=== PATIENT | male | born 1990 | race Caucasian/White ===

== ENCOUNTER 2022-04-26 12:21 | Outpatient (REF) | payer OTHER, SELFPAY ==
[2022-04-26 13:52] LABS: Hemoglobin 15.5 g/dl (14.0-18.0); Mean Corpuscular HGB Conc 34.4 g/dl (31.0-36.0); Mean Corpuscular Hemoglobin 30.6 pg (27.0-33.0); Mean Corpuscular Volume 88.9 fL (80.0-98.0); Mean Platelet Volume 10.1 fL (9.4-12.4); Platelet Count 211 X10*3/uL (160-400); Red Blood Count 5.06 X10*6/uL (4.60-5.80); Red Cell Distribution Width 11.5 % (11.0-16.0); White Blood Count 5.1 X10*3/uL (4.8-10.8)
[2022-04-26 14:21] LABS: Alanine Aminotransferase 22 U/L (0-40); Albumin Level 4.9 g/dL (3.5-5.0); Alkaline Phosphatase 70 U/L (39-117); Anion Gap 14 (12-20); Aspartate Amino Transferase 21 U/L (5-37); Bilirubin Total 2.1 mg/dL (0.0-1.0); Blood Urea Nitrogen 11 mg/dL (9-16); Calcium 9.9 mg/dL (8.4-10.2); Carbon Dioxide 29 mmol/L (22-29); Chloride 104 mmol/L (96-108); Cholesterol 177 mg/dL; Estimated Glomerular Filt Rate > 60; Glucose Fasting 81 mg/dL (60-99); HDL Cholesterol 52 mg/dL; LDL Cholesterol Calculated 113 mg/dl; Potassium 4.3 mmol/L (3.3-5.1); Sodium 143 mmol/L (135-145); Total Protein 7.6 g/dL (6.5-8.0); Triglycerides 63 mg/dL
[2022-04-26 14:40] LABS: TSH reflex Free T4 3.04 uIU/mL (0.32-4.0)
== END 2022-04-26 12:22 | disposition home or self-care (01) ==
LOC: HO.WFDLDS 12:21
PROVIDERS: Visit Provider Hospitalist
DX: Z00.00 Encounter for general adult medical examination without abnormal findings (principal)
CPT/HCPCS: 36415; 80053; 80061; 84443; 85027

== ENCOUNTER 2023-05-12 09:38 | Outpatient (AMB) | payer OTHER, SELFPAY ==
--- NOTE | 2023-05-12 10:08 | MHC.PC.OV ---
Vital Signs 05/12/23 10:10 Height 6 ft 1 in Weight 158 lb 8 oz BMI 20.9 BP 118/64 Blood Pressure Location Lt brachial Position Sitting Respiration 12 Pulse 58 Pulse Source Pulse Oximeter Pulse Oximetry (%) 99 Oxygen Delivery Method Room Air Intake [facility] Intake Note: Patient reports he needs a referral for GI and a referral to neuro. Patient reports he needs a repeat lipid panel as well. 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 I do not have any records from this. He has not followed up with Neurology or Neurosurgery since moving back to [place] a few years ago. He would like to have a neurosurgery referral placed however wishes to hold off on doing that today as he wants to find the name of someone in the [place] area. He denies having any symptoms. In the past he had had headaches related to the shunt but has not suffered any headaches of late. Reports his vision is normal and does not go for routine eye exams. He is aware that he should be getting an MRI without contrast however due to finances and high deductibles on his health insurance he wishes to hold off on this at this time. 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 He was active with colorectal surgery in the past. Reports that his father is a automotive parts clerk recommends that he follow-up. He would like a referral today. Finally he has requesting a lipid screen. Reports his last lipid panel showed elevated triglycerides and he was just looking for a repeat. Reports eats a healthy diet exercises daily. He is fasting today. [facility] Medical History (Updated 05/12/23 @ 11:26 by Jennifer Perales, LAST PATTERN GRADER-) Fissure, anorectal Anxiety with depression History of glioma Chilblain Surgical History (Updated 05/12/23 @ 11:26 by Jennifer Perales [facility]) S/P CHILD DEVELOPMENT PROFESSOR shunt Family History Mother Hypertension PVC (premature ventricular contraction) Maternal Grandmother Hypertension Maternal Grandfather CAD (coronary artery disease) Other Mental health disorder Social History (Updated 05/12/23 @ 10:17 by Parris Dorman CMA) Household Members: Spouse Household Members Other:: 2 dogs Housing: Apartment Are you a primary healthcare network consultant to a significant other at home: No Do you presently have visiting nurse or other home services: No Alcohol intake: never Patient Tobacco Use Status: Former Tobacco user Tobacco use type: Cigarette Years Smoked: 3 years e-Cigarette/Vaping Use: Never Used Substance Use Type: Marijuana service: No Current occupational status: employed Current occupation: [employer] Current occupational exposures/hazards: No Cognitive needs: No Hearing needs: No Vision needs: No Questionnaire PHQ-9 Over the last 2 weeks, how often have you been bothered by any of the following problems? 1. Little interest or pleasure in doing things: not at all 2. Feeling down, depressed, or hopeless: not at all 3. Trouble falling or staying asleep, or sleeping too much: not at all 4. Feeling tired or having little energy: not at all 5. Poor appetite or overeating: not at all 6. Feeling bad about yourself - or that you are a failure or have let yourself or your family down: not at all 7. Trouble concentrating on things, such as reading the newspaper or watching television: not at all 8. Moving or speaking so slowly that other people could have noticed. Or the opposite - being so fidgety or restless that you have been moving around a lot more than usual: not at all 9. Thoughts that you would be better off or of hurting yourself in some way: not at all Total score: 0 Depression Screening Interpretation: Negative Depression Screening Done: Yes 96788 - PHQ-9 Billing: Yes Source: Developed by Drs. Feng Rosenberg, Tamela Jang, Zackary Musa and colleagues, with an educational rissa from [employer]. Thrive Questionnaire Date Thrive assessed: 05/12/23 I am a: Patient What is your living situation today?: I have a steady place to live Within the past 12 months, did the food you bought not last and you didn't have the money to get more?: Never true Within the past 12 months, did you worry whether your food would run out before you got money to buy more?: Never true Do you have trouble paying for medicines?: No Do you have trouble getting transportation to medical appointments?: No Do you have trouble paying your heating and electricity bill?: No Do you have trouble taking care of your child, family member or friend?: No Do you have trouble with day-to-day activities such as bathing, preparing meals, shopping, managing finances, etc.?: No Are you currently unemployed and looking for a job?: No Are you interested in more education?: No Please select the resources that you would like help with: None Currently or been in a relationship where the following occur: no concerns reported THRIVE Score: 0 AUDIT C Alcohol Use Questionnaire (AUDIT-C) 1. How often do you have a drink containing alcohol?: Never 3. How often do you have six or more drinks on one occasion?: Never Total Score: 0 STANLEY-7 AMB Questionnaire STANLEY-7 Date STANLEY - 7 assessed: 05/12/23 Feeling nervous, anxious, or on edge: 0 = Not at all Not being able to stop or control worryin = Not at all Worrying too much about different things: 0 = Not at all Trouble relaxin = Not at all Being so restless that it is hard to sit still: 0 = Not at all Becoming easily annoyed or irritable: 0 = Not at all Feeling afraid as if something awful might happen: 0 = Not at all Total STANLEY-7 score (0-4 normal; 5-9 mild; 10-14 moderate; 15-21 severe): 0 Source: Developed by Drs. Feng Rosenberg, Tamela Jang, Zackary Musa and colleagues, with an educational rissa from [employer]. STANLEY-7 Assessment Billing STANLEY-7 Assessment Tool: STANLEY-7 Assessment 78579 Review of Systems Const All systems reviewed & are unremarkable except as noted in HPI and below Physical exam (Primary Care) Vital Signs: Last Vital Signs Pulse 58 05/12/23 10:10 Resp 12 05/12/23 10:10 BP 118/64 05/12/23 10:10 Pulse Ox 99 05/12/23 10:10 Oxygen Delivery Method Room Air 05/12/23 10:10 BMI result Body Mass Index 20.9 Tobacco/Smoking Status: Tobacco use Status Tobacco use date assessed 05/12/23 05/12/23 10:19 Patient Tobacco Use Status Former Tobacco user 05/12/23 10:17 Tobacco use type Cigarette 05/12/23 10:17 e-Cigarette/Vaping Use Never Used 05/12/23 10:19 PHQ-9: PHQ-9 Score PHQ-9: Total score 0 05/12/23 10:37 Depression Screening Interpretation: Negative Thrive Assessment: Date of Thrive Assessment Date Thrive assessed 05/12/23 05/12/23 10:19 Currently or been in a relationship where the following occur: no concerns reported Const Other: Awake alert PERRLA, EOMI LS CTAB RRR Declined Gi/ exam Results Reviewed Results Reviewed: Test Result Flag Reference Triglyceride 41 <150 mg/dL Desirable Triglyceride: less than 150 mg/dL Borderline High Triglyceride 150-199 mg/dL High Triglyceride: 200-499 mg/dL Very High Triglyceride: greater than or equal to 5OO mg/dL Cholesterol 156 <200 mg/dL Desirable Cholesterol: less than 200 mg/dL Borderline High Cholesterol: 200-239 mg/dL High Cholesterol: greater than 239 mg/dL LDL Calculated 93 <100 mg/dL Desirable LDL: less than 100 mg/dL Near Optimal/Above Optimal LDL: 110-129 mg/dL Borderline High LDL: 130-159 mg/dL High LDL: 160-189 mg/dL Very High LDL: greater than or equal to 190 mg/dL HDL 55 >40 mg/dL Desirable HDL: greater than 40 mg/dL Note: This HDL assay may give artificially low results in patients with liver disease. Assessment and Plan Assessment & Plan (1) Fissure, anorectal: Code(s): K60.2 - Anal fissure, unspecified (2) Screening, lipid: Code(s): Z13.220 - Encounter for screening for lipoid disorders (3) S/P CHILD DEVELOPMENT PROFESSOR shunt: Code(s): Z98.2 - Presence of cerebrospinal fluid drainage device (4) History of glioma: Code(s): Z87.898 - Personal history of other specified conditions Plan Total time spent caring for the patient today was 60 minutes. This includes time spent before the visit reviewing the chart, time spent during the visit, and time spent after the visit on documentation Orders: Orders Lipid Panel Today Z13.220 - Encounter for screening for lipoid disorders Referrals Gastroenterology Referral K60.2 - Anal fissure, unspecified Patient Instructions: Lipids to be done today and results on the portal. When you find the name of the neurosurgeon he would like to follow-up with please send me a message on the portal and I can place this referral. I referred you to the GI department at [facility] and they will follow you for the care of your fissure. Coding Level of Care Code Est Pt Level 5 (64543) Diagnoses Fissure, anorectal K60.2 Screening, lipid Z13.220 S/P CHILD DEVELOPMENT PROFESSOR shunt Z98.2 History of glioma Z87.898 Additional Codes STANLEY-7 Assessment Billing - STANLEY-7 Assessment Tool: STANLEY-7 Assessment 17620 ([id number])
[2023-05-12 10:10] VITALS: BP 118/64; PULSE 58; RESP 12; O2SAT 99; BMI 20.9
== END 2023-05-12 10:55 | disposition home or self-care (01) ==
PROVIDERS: PCP Nurse Practitioner Family; Visit Provider Nurse Practitioner Family
DX: K60.2 Anal fissure, unspecified (principal); Z13.220 Encounter for screening for lipoid disorders; Z98.2 Presence of cerebrospinal fluid drainage device; Z87.898 Personal history of other specified conditions
CPT/HCPCS: 99215

== ENCOUNTER 2023-05-12 10:49 | Outpatient (REF) | payer OTHER, SELFPAY ==
[2023-05-12 15:28] LABS: Cholesterol 156 mg/dL (<200); HDL Cholesterol 55 mg/dL (>40); LDL Cholesterol Calculated 93 mg/dL (<100); Triglycerides 41 mg/dL (<150)
== END 2023-05-12 10:50 | disposition home or self-care (01) ==
LOC: HO.WFDLDS 10:49
PROVIDERS: Visit Provider Nurse Practitioner Family
DX: Z13.220 Encounter for screening for lipoid disorders (principal)
CPT/HCPCS: 36415; 80061

== ENCOUNTER 2023-06-27 09:15 | Outpatient (AMB) | payer OTHER, SELFPAY ==
--- NOTE | 2023-06-27 09:16 | MHC.OFFVIS ---
Intake Vital Signs 06/27/23 09:18 Height 6 ft 1 in Weight 162 lb 11.218 oz BMI 21.5 BP 129/65 Blood Pressure Location Lt brachial Position Sitting Pulse 65 Pulse Source Pulse Oximeter Intake Visit Reasons: Anal fissure Intake Note: Patient referred by PCP Jennifer Perales for anal fissure. Present for Anal fissure and acid reflux that has been going on for years. Patient c/o: GERD for years with no relief even after dietary changes. Pt denies any N/V/D. 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 Patient has been experiencing increased epigastric discomfort postprandially and occasional trouble swallowing. Patient reports that his epigastric discomfort is worse at night time. Patient reports that his last meal is to hour before going to bed. Patient states that sometimes when he eats spicy food he will experience dose symptoms. Patient also reports rectal pain occasionally and blood after having a bowel movement. Patient does have a history of fissures, however he tries to heal this himself by using [id number] medications. Patient is vegan and does high-fiber diet. Patient is drinking lots of fluids. Denies any issues with anesthesia in no history of sleep apnea. Not on any anticoagulation medication. Patient denies any cardiac or respiratory symptoms. [facility] Medical History Fissure, anorectal Anxiety with depression History of glioma Chilblain Surgical History S/P OPTICAL SALES ASSOCIATE shunt Family History Mother Hypertension PVC (premature ventricular contraction) Maternal Grandmother Hypertension Maternal Grandfather CAD (coronary artery disease) Other Mental health disorder Social History Household Members: Spouse Household Members Other:: 2 dogs Housing: Apartment Are you a primary residential care officer to a significant other at home: No Do you presently have visiting nurse or other home services: No 75 years or older and lives alone: No Alcohol intake: never Patient Tobacco Use Status: Former Tobacco user Tobacco use type: Cigarette Years Smoked: 3 years e-Cigarette/Vaping Use: Never Used Substance Use Type: Marijuana service: No Current occupational status: employed Current occupation: [employer] Current occupational exposures/hazards: No Cognitive needs: No Hearing needs: No Vision needs: No Review of Systems Const Denies weight gain and Denies weight loss ENT Reports no additional complaints, Reports dysphagia (Occasional) and Denies odynophagia Card Reports no additional complaints Resp Reports no additional complaints GI Denies abdominal pain, Denies belching, Denies melena, Denies bloating, Reports hematochezia, Denies change in bowel habits, Reports dysphagia (Occasional), Denies excessive flatus, Reports dyspepsia, Reports heartburn, Denies diarrhea, Denies loose stools, Denies nausea, Denies odynophagia, Denies vomiting and Reports other (Rectal pain) Reports no additional complaints Musc Reports no additional complaints Neuro Reports no additional complaints Psych Reports no additional complaints Endo Reports no additional complaints Physical Exam Vital Signs: Last Vital Signs Pulse 65 06/27/23 09:18 BP 129/65 06/27/23 09:18 BMI result Body Mass Index 21.5 Const General: healthy appearing, no acute distress and well developed Nutritional Appearance: well nourished Orientation/consciousness: patient oriented x3 Resp Effort & Inspection: normal respiratory effort, able to speak in complete sentences, no tracheal deviation and symmetric chest movement Auscultation: clear to auscultation bilaterally Cardio Rate: regular rate GI Inspection: Yes normal to inspection and No distended Palpation (GI): Soft to palpation, not firm, nontender and No hepatosplenomegaly present Auscultation: normal bowel sounds General: Yes no CVA tenderness Back/Spine/Pelvis Back: no CVA tenderness Skin General skin exam: elasticity normal, turgor normal and dry skin Neuro General: patient oriented x3 Psych Appearance: grossly normal Mental Status: mental status grossly normal Assessment & Plan Assessment & Plan (1) Fissure, anorectal: Code(s): K60.2 - Anal fissure, unspecified (2) Rectal bleed: Code(s): K62.5 - Hemorrhage of anus and rectum (3) GERD (gastroesophageal reflux disease): Code(s): K21.9 - Gastro-esophageal reflux disease without esophagitis Qualifiers: Esophagitis presence: esophagitis presence not specified Qualified Code(s): K21.9 - Gastro-esophageal reflux disease without esophagitis (4) Postprandial epigastric pain: Code(s): R10.13 - Epigastric pain Plan Postprandial epigastric discomfort. Patient will try avoiding dietary triggers and late night snacking. Staying upright for minimum 3 hours after meals discussed with patient. Patient will be sent for upper endoscopy to rule out gastritis, duodenitis, gastric or peptic ulcers, Rosas's. Patient reports rectal bleed and rectal pain occasionally. Will send for colonoscopy. What to expect before during and after procedure discussed with patient. Discussed with patient the importance of good bowel prep and clear liquid diet day before procedure. I will see him after the procedure, sooner on as needed basis. Patient is agreeable to this plan and verbalizes understanding of instructions. He was given the opportunity to ask questions and all questions answered. Thank you for allowing me to participate in his care. Coding Level of Care Code New Pt Level 3 (60678) Diagnoses Fissure, anorectal K60.2 Rectal bleed K62.5 Gastroesophageal reflux disease, unspecified whether esophagitis present K21.9 Esophagitis presence: esophagitis presence not specified Postprandial epigastric pain R10.13 Time Spent (min) 40 Comment 30 minutes spent with patient and additional 10 minutes spent reviewing his records
[2023-06-27 09:18] VITALS: BP 129/65; PULSE 65; BMI 21.5
== END 2023-06-27 10:04 | disposition home or self-care (01) ==
PROVIDERS: PCP Nurse Practitioner Family; Visit Provider Nurse Practitioner Family
DX: K60.2 Anal fissure, unspecified (principal); K62.5 Hemorrhage of anus and rectum; K21.9 Gastro-esophageal reflux disease without esophagitis; R10.13 Epigastric pain
CPT/HCPCS: 99203

== ENCOUNTER → 2023-06-27 09:15 | Outpatient (BNVA) | payer OTHER, SELFPAY | PROVIDERS: PCP Nurse Practitioner Family; Visit Provider Nurse Practitioner Family ==

== ENCOUNTER 2023-07-04 07:56 | Outpatient (REF) | payer OTHER, SELFPAY ==
--- NOTE | ~2023-07-04 | MR_ITS ---
EXAMINATION: MR BRAIN WITH AND WITHOUT CONTRAST CLINICAL INFORMATION: tectal glioma, ventriculoperitoneal shunt COMPARISON: MRI brain 04/08/2011 TECHNIQUE: MRI of the brain was obtained using routine sequences before and following administration of intravenous contrast. A total of 7 mL of Gadavist was administered intravenously. FINDINGS: Stable appearance of a expansile nonenhancing T2 FLAIR hyperintensity within the midbrain tectum/periaqueductal mon matter with associated occlusion versus stenosis of the cerebral aqueduct compatible with known tectal glioma. A right frontal approach ventriculoperitoneal shunt catheter is in stable position traversing the right frontal horn and terminating within the midline interhemispheric region. Stable ventricular caliber with slitlike appearance of the right lateral ventricle and slight prominence of the left lateral ventricle. No transependymal CSF effusion. No extra-axial fluid collections. There is slight gliosis along the course of the catheter tract within the right frontal lobe/centrum semiovale. No pathologic intracranial enhancement. No acute infarct. The GRE sequence is without susceptibility artifact to suggest acute or chronic blood products. The intracranial dural venous sinus and arterial flow voids are preserved. The orbits are grossly unremarkable. Leftward nasal septal deviation with bony spur impinging on the left inferior nasal turbinate. Trace ethmoid air cell mucosal thickening. No mastoid effusion. Normal marrow signal. MR/MR head/brain wo/w con IMPRESSION: 1. Stable appearance of a expansile nonenhancing T2 FLAIR hyperintensity within the midbrain tectum/periaqueductal mon matter with associated occlusion versus stenosis of the cerebral aqueduct compatible with known tectal glioma. 2. 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
[2023-07-04] MEDS: gadobutroL 7.5 ML VIAL IVPUSH (09:16)
== END 2023-07-04 07:57 | disposition home or self-care (01) ==
LOC: HO.MRI 07:56
PROVIDERS: Visit Provider Nurse Practitioner Family
DX: Z98.2 Presence of cerebrospinal fluid drainage device (principal); Z87.898 Personal history of other specified conditions
CPT/HCPCS: 70553; A9585

== ENCOUNTER 2023-10-24 07:15 | Day surgery (SDC) | payer OTHER, SELFPAY ==
[2023-10-24 07:32] VITALS: BP 107/73; PULSE 80; RESP 18; TEMP 36.4; O2SAT 98; BMI 19.1
[2023-10-24 07:39] VITALS: BMI 19.1
--- NOTE | 2023-10-24 07:48 | HO.ANESPROP2 ---
HPI - Anesthesia Eval Consult details Narrative: for EGD and colonoscopy PMF Active Problems Active Problems: All Active Problems Stenosing tenosynovitis of finger of right hand (Acute) Injury while rock climbing (Acute) Fissure, anorectal (Acute) GERARDO positive (Acute) History of glioma (Acute) S/P CREW CLERK shunt (Acute) Anxiety with depression (Acute) Screening, lipid (Acute) Normal physical exam (Acute) Encounter for screening and preventative care (Acute) Headache (Acute) Past Medical History Medical History (Updated 09/08/23 @ 06:27 by Jennifer Perales [facility]) Fissure, anorectal Anxiety with depression History of glioma Chilblain Cognitive capacity: normal Family History Family History Mother Hypertension PVC (premature ventricular contraction) Maternal Grandmother Hypertension Maternal Grandfather CAD (coronary artery disease) Other Mental health disorder Family history of problems with anesthesia: No Surgical History Surgical History (Updated 07/10/23 @ 15:16 by EVETTE Galeano) S/P CREW CLERK shunt History of Problems with Anesthesia: Yes (N/V after opioids) Social History Social History Household Members: Spouse Household Members Other:: 2 dogs Housing: Apartment Are you a primary ocular care technician to a significant other at home: No Do you presently have visiting nurse or other home services: No Alcohol intake: never Patient Tobacco Use Status: Former Tobacco user Tobacco use type: Cigarette Years Smoked: 3 years e-Cigarette/Vaping Use: Never Used Use of substances other than those prescribed or required for medical reasons: Yes Substance Use Type: Marijuana Substance Use Type Other:: edibles Are you DNR?: No Advance Directives: No Advance Directives Information Provided: Yes service: No Current occupational status: employed Current occupation: [employer] Current occupational exposures/hazards: No Cognitive needs: No Hearing needs: No Vision needs: No Meds Allergies Allergy/AdvReac Type Severity Reaction Status Date / Time No Known Allergies Allergy Verified 10/24/23 07:26 Home Medications ?Medication ?Instructions ?Recorded ?Confirmed ?Last Taken ?Type No Known Home Meds 10/24/23 10/24/23 Unknown History Exam Height,Weight and Vital Signs: Height 6 ft 3.5 in Weight 70.307 kg Last Vital Signs Temp 97.6 F 10/24/23 07:32 Pulse 80 10/24/23 07:32 Resp 18 10/24/23 07:32 BP 107/73 10/24/23 07:32 Pulse Ox 98 10/24/23 07:32 O2 Del Method Room Air 10/24/23 07:32 Airway Mallampati Class: I TM Dist: >3cm Neck ROM: Full Loose/Missing/Broken Teeth: No Heart: ok Lungs: ok Assessment and Plan Assessment Anesthesia Assessment: Anesthesia Plan Discussed and Chart Reviewed Final Anesthetic Review Family History of Problems with Anesthesia: No History of Problems with Anesthesia: Yes (N/V after opioids) NPO: Yes ASA Class: III Final Preanesthetic Review: No Changes in Pt Med Stat, Meds/Allgs Chart Reviewed, Consent Obtained/Reviewed and Anes Risks/Benef Reviewed Patient Risk: Low Procedure Risk: Intermediate Anesthetic Plan Anesthetic Plan: Agree w/ Assess. and Plan and TIVA Disposition: Standard PACU
[2023-10-24] MEDS: Lactated Ringers 1,000 ML 50 ML IVCONT (07:52)
--- NOTE | 2023-10-24 08:26 | P.HPSUR_ITS ---
Pre-Procedural Eval Section A - 24 Hr Update-Section A only Date of Service: 10/24/23 The patient is an INPATIENT: No The patient has been examined within 24 hours of the surgical procedure. 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 No changes have occurred unless specified. Time Spent With Patient Time: Total time managing care of this patient today ____ minutes.
--- NOTE | 2023-10-24 09:09 | P.OPN-COLO_ITS ---
Colonoscopy Operative Note Operative Note Date of Service: 10/24/23 Narrative: FLEXIBLE TRANSORAL UPPER GASTROINTESTINAL ENDOSCOPY WITH BIOPSIES AND COLONOSCOPY TILL CECUM WITH BIOPSIES Pre-op diagnosis: Abdominal pain, GERD, rectal pain and bleeding Post-op diagnosis: Gastritis, Gastric ulcer, Hemorrhoids, anal fissure Endoscopist:Alejandra Wall MD Anesthesia:?MAC UPPER ENDOSCOPY Consent: Indications for the procedure and potential complications of bleeding, perforation, reaction to medications and missed diagnosis were discussed with the patient and informed consent was obtained. Instrument: Olympus GIF H 190 mid size upper endoscope Monitoring: Vital signs and clinical assessment, continuous EKG monitoring, Pulse oximetry, Carbon Dioxide monitoring and blood pressure monitoring were done throughout the procedure. Procedure: The patient was placed in the left lateral decubitis position and pre-procedure medications were administered and a bite block was placed. The endoscope was inserted into the mouth and advanced under direct vision to the third part of duodenum. A careful inspection was made as the upper endoscope was withdrawn including a retroflexed examination of the proximal stomach; Findings and interventions are described below. Findings: Larynx: Normal Esophagus: GE junction at 40 cms. No esophagitis or Rosas's Biopsies were obtained from proximal esophagus to check for EOE. Stomach: A 5-6 mm ulcer in the gastric body along the greater curvature - biopsied. Moderate diffuse gastric erythema - biopsies were obtained from the gastric body and antrum. Grade 2 flap valve on retroflexed examination of the cardia. Duodenum: Normal bulb and descending duodenum Biopsies were obtained from descending duodenum to check for celiac sprue Intervention: Biopsies as noted above COLONOSCOPY PROCEDURE NOTE Instrument: Olympus CF H 190 L variable stiffness adult colonoscope Monitoring: Vital signs and clinical assessment, intermittent blood pressure monitoring, continuous EKG monitoring, Pulse oximetry and Carbon Dioxide monitoring were done throughout the procedure. Please see anesthesia flowsheet. Colon withdrawl time was 17 minutes. Procedure: The patient was placed in the left lateral decubitis position and pre-procedure medications were administered. After a digital rectal examination of the ano-rectum, the video colonoscope was inserted into the rectum and advanced through the colon to the cecum. The colonoscope was slowly withdrawn in a retrograde panoramic fashion and the colon mucosa was carefully examined including a retroflexed view of the rectum. Findings and interventions are described below. Procedure Difficulty: Colon was long, redundant and tortuous and there was some loop formation Findings: Terminal Ileum: Not evaluated Cecum: Normal Ascending Colon: Normal Transverse Colon: Normal Descending Colon: Normal Sigmoid Colon: Normal Rectum: Normal Ano-rectum: Moderate internal hemorrhoids, hypertrophied anal papilla and a healing anal fissure Colon preparation: Excellent, after some irrigation. [place] Bowel Preparation Scale Right colon; 3 Transverse colon: 3 Left colon; 3 (0 = Unprepared colon segment with mucosa not seen due to solid stool that cannot be cleared. 1 = Portion of mucosa of the colon segment seen, but other areas of the colon segment not well seen due to staining, residual stool and/or opaque liquid. 2 = Minor amount of residual staining, small fragments of stool and/or opaque liquid, but mucosa of colon segment seen well. 3 = Entire mucosa of colon segment seen well with no residual staining, small fragments of stool or opaque liquid) Impression and Post Procedure Diagnosis: Endoscopy Findings: STOMACH: A 5-6 mm ulcer in the gastric body along the greater curvature - Pt denied use to NSAIDS or aspirin. Moderate diffuse gastric erythema - biopsies were obtained from the gastric body and antrum. DUODENUM: Normal - biopsied to check for celiac sprue Colonoscopy Findings: No polyps were detected Random biopsies were obtained from the TI, right and left colon Moderate hemorrhoids on retroflexed exam. Plan: Pt requesting a Tele-visit with Starla Mayo NP (since he lives in [place]) for follow up - scheduled on 11/21/23. Repeat Colonoscopy in 10 year if biopsies are normal. Above findings were reviewed with the patient and relevant handouts were given and the discharge area. Pt was advised to start Omeprazole 20 mg daily for gastric ulcer - prescription was sent to patient's preferred pharmacy. He was offered a prescription for hydrocortisone rectal cream for hemorrhoids. Pt stated his symptoms have improved since he started doing sitz baths and using a bidet and he wanted to avoid medications BIOPSIES SHOWED: A. Small bowel, biopsy: Small bowel mucosa with preserved villi and no specific change; no evidence of celiac disease. B. Gastric antrum, biopsy: Gastric antral mucosa with minimal chronic inactive gastritis; negative for intestinal metaplasia and dysplasia (see comment). C. Gastric body, biopsy: Gastric body mucosa with minimal chronic inactive gastritis, and fragments of mild chronic active gastritis and increased intraepithelial lymphocytes; negat clotilde for intestinal metaplasia and dysplasia (see comment). D. Gastric body ulcer, biopsy: Mild chronic active gastritis; negative for intestinal metaplasia and dysplasia. E. Esophagus, proximal, biopsy: Squamous mucosa with no specific change; no columnar mucosa present; no evidence of eosinophilic esophagitis. F. Terminal ileum, biopsy: Ileal mucosa with no specific change; no ileitis, granulomas or dysplasia. G. Colon, right, biopsy: Colonic mucosa with no specific change; no colitis, granulomas or dysplasia. H. Colon, left, biopsy: Colonic mucosa with lymphoid aggregates and no specific change; no colitis, granulomas or dysplasia.
[2023-10-24 09:38] VITALS: BP 91/51; PULSE 50; RESP 18; TEMP 36.4; O2SAT 100
[2023-10-24 09:53] VITALS: BP 101/61; PULSE 51; RESP 16; TEMP 36.1; O2SAT 98
== END 2023-10-24 10:20 | disposition home or self-care (01) ==
PROVIDERS: PCP Nurse Practitioner Family; Visit Provider Internal Medicine Gastroenterology
PROC: (CPT 45380; principal; 2023-10-24 08:30)
DX: K62.5 Hemorrhage of anus and rectum (principal); K64.8 Other hemorrhoids; K60.2 Anal fissure, unspecified; K62.89 Other specified diseases of anus and rectum; R10.13 Epigastric pain; K29.50 Unspecified chronic gastritis without bleeding; K25.9 Gastric ulcer, unspecified as acute or chronic, without hemorrhage or perforation; K21.9 Gastro-esophageal reflux disease without esophagitis; R76.0 Raised antibody titer; F41.8 Other specified anxiety disorders; Z85.841 Personal history of malignant neoplasm of brain; Z98.2 Presence of cerebrospinal fluid drainage device; Z79.899 Other long term (current) drug therapy; Z87.891 Personal history of nicotine dependence
CPT/HCPCS: 45380; 43239; 88305; 88313; 88342; J2704

== ENCOUNTER → 2023-10-24 07:15 | Outpatient (BNV) | payer OTHER, SELFPAY | PROVIDERS: PCP Nurse Practitioner Family; Visit Provider Internal Medicine Gastroenterology | DX: K21.9 Gastro-esophageal reflux disease without esophagitis (principal); K29.70 Gastritis, unspecified, without bleeding; K25.9 Gastric ulcer, unspecified as acute or chronic, without hemorrhage or perforation; K62.5 Hemorrhage of anus and rectum; K64.8 Other hemorrhoids; K62.89 Other specified diseases of anus and rectum | CPT/HCPCS: 43239; 45380 ==

== ENCOUNTER 2024-04-29 15:13 | Outpatient (AMB) | payer OTHER, SELFPAY ==
--- NOTE | 2024-04-29 15:14 | A.OFFPC_ITS ---
Vital Signs 04/29/24 15:19 Height 6 ft 3.5 in Weight 166 lb BMI 20.5 BP 117/66 Blood Pressure Location Lt brachial Position Sitting Respiration 12 Pulse 63 Pulse Source Pulse Oximeter Pulse Oximetry (%) 99 Oxygen Delivery Method Room Air Intake Visit Reasons: Annual pe Intake Note: annual physical Clock And Watch Hands Mounter Required: No Allergies No Known Allergies Allergy (Verified 04/29/24 15:36) Medication List - Last Reconciled 04/29/24 by DAVE Galeano Tobacco use date assessed: 05/12/23 Dental Screening Dental Screen Date: 04/29/24 Did you have a dental visit in the last 12 months?: Yes Did you have a dental problem in the last 6 months where you did not have access to dental care?: No Was dental information given to patient?: Patient has dentist HPI HPI Comments History of Present Illness Details A 33-year-old male with hx of anal rectal fissure, 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 In June, the patient experienced an issue related to neurosurgery referrals and is seeking to establish care with [facility]. In addition, the patient was diagnosed with Peptic Ulcer Disease and was treated with Omeprazole for four months, leading to resolution. The patient also reports a history of anal fissure, managed successfully with nitroglycerin ointment. He expressed long-standing issues with anxiety, exacerbated by work- related stress, and shows a history of depression as indicated by a positive PHQ-9 screen. The patient also has elevated bilirubin levels, possibly indicative of Gilbert's Syndrome, which has been chronically stable over the years, without a formal diagnosis. No significant changes in family history were reported. Utilizes physical exercise as a stress-relieving measure. Vegan diet with B12, Vitamin D, and iron supplementation. Exam: General: Well developed, well nourished, in no acute distress. Appears stated age. Head: Normocephalic, atraumatic. Eyes: Pupils are equal, round and reactive to light and accommodation. Conjunctivae are clear. Vision grossly normal. Ears: TMs clear AU, EACS WNL Nose: Patent, without discharge. Mouth: There are no ulcers or lesions noted. No inflammation, no post nasal drip, no plaques nor exudates. Neck: Supple, no adenopathy or thyromegaly. Lungs: Clear to auscultation bilaterally. No rales, rhonchi or wheeze noted. Good air flow in all gilman. Heart: Regular rate and rhythm. No murmurs, click, rubs or gallops are noted. Abdomen: Bowel sounds present in all quadrants. The abdomen is soft, nontender, with no masses or organomegaly noted. No hernias are noted. Musculoskeletal: Joints are nontender, without swelling, redness, or effusions. Range of motion is observed to be normal. Pulses: Peripheral pulses are equal and palpable bilaterally. Extremities: No clubbing, cyanosis nor edema is noted. Neurologic: Gait and station normal. Cranial Nerves 2-12 intact. Motor strength grossly symmetrical and intact. No sensory loss. Balance normal. Skin: No rashes, ulcers, or lesions noted. Turgor is good. Skin color is good. Hair and nails are without abnormalities. Psych: Normal eye contact, affect and mood appropriate, and normal interactions. Patient is alert and appropriate to context. I discussed with the patient the management of their anxiety and depressive symptoms, emphasizing the importance of cognitive-behavioral therapy and the potential use of SSRIs if needed in the future. The patient expressed a preference for natural remedies, and we reviewed the pros and cons of alternative treatments. I addressed the referral issues with [facility] for neurosurgery and guided the patient to ensure the referral is in hand for any discrepancies. We reviewed routine health maintenance, emphasizing the patient's exercise regimen benefits for mental health. The patient is aware of the occurrence and management of his health concerns, including the significance of addressing elevated bilirubin levels and follow-up with a specialist if necessary. I encouraged him to communicate with me if his mood or work stress worsens. Plan: - Referral to [facility] neurosurgery for fur ther evaluation and management. - Follow-up with Gastroenterology as nee ded for history of gastric ulcer, also Gilbert's Syndrome consideration. - Monitoring of anxiety and depression; patient plans to arrange for CBT sessions shortly. Offered and declined medication. Was on SSRI in the past. - Encouraged continuation of physical ex ercise for anxiety relief. - No further pharmacological interventio n for Peptic Ulcer Disease; monitor recurrences. Patient was informed and verbally consented to the use of an ambient scribe for clinic note documentation during this visit. [facility] Medical History (Updated 04/29/24 @ 15:54 by Jennifer Perales [facility]) Gastric ulcer Stenosing tenosynovitis of finger of right hand Perianal abscess Fissure, anorectal Anxiety with depression History of glioma Chilblain Surgical History (Updated 07/10/23 @ 15:16 by [facility] S/P ANTIQUE CLOCKS REPAIRER shunt Family History Mother Hypertension PVC (premature ventricular contraction) Maternal Grandmother Hypertension Maternal Grandfather CAD (coronary artery disease) Other Mental health disorder Social History Household Members: Spouse Household Members Other:: 2 dogs Housing: Apartment Are you a primary nursing care partner to a significant other at home: No Do you presently have visiting nurse or other home services: No 75 years or older and lives alone: No Alcohol intake: never Patient Tobacco Use Status: Former Tobacco user Tobacco use type: Cigarette Years Smoked: 3 years e-Cigarette/Vaping Use: Never Used Substance Use Type: Marijuana service: No Current occupational status: employed Current occupation: [employer] Current occupational exposures/hazards: No Cognitive needs: No Hearing needs: No Vision needs: No Questionnaire PHQ-9 Over the last 2 weeks, how often have you been bothered by any of the following problems? 1. Little interest or pleasure in doing things: several days 2. Feeling down, depressed, or hopeless: more than half the days 3. Trouble falling or staying asleep, or sleeping too much: nearly every day 4. Feeling tired or having little energy: several days 5. Poor appetite or overeating: not at all 6. Feeling bad about yourself - or that you are a failure or have let yourself or your family down: nearly every day 7. Trouble concentrating on things, such as reading the newspaper or watching television: several days 8. Moving or speaking so slowly that other people could have noticed. Or the opposite - being so fidgety or restless that you have been moving around a lot more than usual: several days 9. Thoughts that you would be better off or of hurting yourself in some way: not at all Total score: 12 Depression Screening Interpretation: Positive Depression Screening Follow-up: Existing condition Depression Screening Done: Yes 58175 - PHQ-9 Billing: Yes Source: Developed by Drs. Feng Rosenberg, Tamela Jang, Zackary Musa and colleagues, with an educational rissa from [employer]. Thrive Questionnaire Date Thrive assessed: 04/29/24 I am a: Patient What is your living situation today?: I have a steady place to live Within the past 12 months, did the food you bought not last and you didn't have the money to get more?: Never true Within the past 12 months, did you worry whether your food would run out before you got money to buy more?: Never true Do you have trouble paying for medicines?: No Do you have trouble getting transportation to medical appointments?: No Do you have trouble paying your heating and electricity bill?: No Do you have trouble taking care of your child, family member or friend?: No Do you have trouble with day-to-day activities such as bathing, preparing meals, shopping, managing finances, etc.?: No Are you currently unemployed and looking for a job?: No Are you interested in more education?: No Please select the resources that you would like help with: None Currently or been in a relationship where the following occur: No concerns reported THRIVE Score: 0 AUDIT C Alcohol Use Questionnaire (AUDIT-C) 1. How often do you have a drink containing alcohol?: Never 3. How often do you have six or more drinks on one occasion?: Never Total Score: 0 Score Reviewed/Action Taken: Yes STANLEY-7 AMB Questionnaire STANLEY-7 Date STANLEY - 7 assessed: 04/29/24 Feeling nervous, anxious, or on edge: 3 = Nearly every day Not being able to stop or control worryin = More than half the days Worrying too much about different things: 3 = Nearly every day Trouble relaxin = Several days Being so restless that it is hard to sit still: 3 = Nearly every day Becoming easily annoyed or irritable: 2 = More than half the days Feeling afraid as if something awful might happen: 2 = More than half the days Total STANLEY-7 score (0-4 normal; 5-9 mild; 10-14 moderate; 15-21 severe): 16 Source: Developed by Drs. Feng Rosenberg, Tamela Jang, Zackary Musa and colleagues, with an educational rissa from [employer]. STANLEY-7 Assessment Billing STANLEY-7 Assessment Tool: STANLEY-7 Assessment 65213 Physical exam (Primary Care) Tobacco/Smoking Status: Tobacco use Status Tobacco use date assessed 05/12/23 05/12/23 10:19 Patient Tobacco Use Status Former Tobacco user 10/24/23 09:49 Tobacco use type Cigarette 05/12/23 10:17 e-Cigarette/Vaping Use Never Used 05/12/23 10:19 Depression Screening Interpretation: Positive Depression Screening Follow-up: Existing condition Thrive Assessment: Date of Thrive Assessment Date Thrive assessed 04/26/24 04/26/24 14:47 Currently or been in a relationship where the following occur: No concerns reported Coding Level of Care Code Est Pt Prev Care 18-39y(61700) Diagnoses Encounter for general adult medical examination without abnormal findings Z00.00 History of glioma Z87.898 S/P ANTIQUE CLOCKS REPAIRER shunt Z98.2 Anxiety with depression F41.8 Additional Codes STANLEY-7 Assessment Billing - STANLEY-7 Assessment Tool: STANLEY-7 Assessment 95926 ([id number]) PHQ-9 - 59860 - PHQ-9 Billing: Yes ([id number]) Assessment & Plan Assessment & Plan (1) Encounter for general adult medical examination without abnormal findings: Code(s): Z00.00 - Encounter for general adult medical examination without abnormal findings Category: Medical (2) History of glioma: Comment: MRI 06/2023 1. Stable appearance of a expansile nonenhancing T2 FLAIR hyperintensity within the midbrain tectum/periaqueductal mon matter with associated occlusion versus stenosis of the cerebral aqueduct compatible with known tectal glioma. 2. 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 Referred to [facility] Code(s): Z87.898 - Personal history of other specified conditions Category: Medical (3) S/P ANTIQUE CLOCKS REPAIRER shunt: Comment: MRI 06/2023 1. Stable appearance of a expansile nonenhancing T2 FLAIR hyperintensity within the midbrain tectum/periaqueductal mon matter with associated occlusion versus stenosis of the cerebral aqueduct compatible with known tectal glioma. 2. 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 Referred to [facility] Dr Waylon Maguire Neurosurg for survellience Code(s): Z98.2 - Presence of cerebrospinal fluid drainage device Category: Surgical (4) Anxiety with depression: Code(s): F41.8 - Other specified anxiety disorders Category: Medical Plan . Orders: Referrals Neurosurgery Referral Z87.898 - Personal history of other specified conditions, Z98.2 - Presence of cerebrospinal fluid drainage device Patient Instructions: - Follow up with neurosurgery referral at [facility]. - Continue with regular exercise and vegan diet with outlined supplements. - Contact me if anxiety or depression symptoms worsen. - Keep upcoming health check-ups and consider contacting a therapist for CBT sessions. - Monitor and report any recurrence of gastrointestinal symptoms. - Reach out for any acute changes in health status or if any concerning symptoms arise. Health screenings for men You should visit your health care provider regularly, even if you feel healthy. The purpose of these visits is to: Screen for medical issues Assess your risk for future medical problems Encourage a healthy lifestyle Update vaccinations and other preventive care services Help you get to know your provider in case of an illness Information Even if you feel fine, you should still see your provider for regular checkups. These visits can help you avoid problems in the future. For example, the only way to find out if you have high blood pressure is to have it checked regularly. High blood sugar and high cholesterol level also may not have any symptoms in t he early stages. Simple blood tests can check for these conditions. There are specific times when you should see your provider or receive specific health screenings. The [place] Preventive Services Task Force publishes a list of recommended screenings. Below are screening guidelines for men ages 40 to 64. BLOOD PRESSURE SCREENING Have your blood pressure checked at least once every year. Watch for blood pressure screenings in your area. Ask your provider if you can stop in to have your blood pressure checked. Ask your provider if you need your blood pressure checked more often if: You have diabetes, heart disease, kidney problems, or are overweight or have certain other health conditions You have a first-degree relative with high blood pressure You are Black Your blood pressure top number is from 120 to 129 mm Hg, or the bottom number is from 70 to 79 mm Hg If the top number is 130 mm Hg or greater or the bottom number is 80 mm Hg or greater, this is considered stage 1 hypertension. Schedule an appointment with your provider to learn how you can lower your blood pressure. Effects of age on blood pressure CHOLESTEROL SCREENING Cholesterol screening should begin at age 35 for men with no known risk factors for coronary heart disease. Repeat cholesterol screening should take place: Every 5 years for men with normal cholesterol levels More often if changes occur in lifestyle (including weight gain and diet) More often if you have diabetes, heart disease, kidney problems, or certain other conditions COLORECTAL CANCER SCREENING If you are under age 45, talk to your provider about getting screened. You may need to be screened if you have a strong family history of colon cancer or polyps. Screening may also be considered if you have risk factors such as a history of inflammatory bowel disease or polyps. If you are age 45 to 75, you should be screened for colorectal cancer. There are several screening tests available: A stool-based fecal occult blood (gFOBT) or fecal immunochemical test (FIT) every year A stool sDNA test every 1 to 3 years Flexible sigmoidoscopy every 5 years or every 10 years with stool testing FIT done every year CT colonography (virtual colonoscopy) every 5 years Colonoscopy every 10 years You may need a colonoscopy more often if you have risk factors for colorectal cancer, such as: Ulcerative colitis A personal or family history of colorectal cancer A history of growths in your colon called adenomatous polyps DENTAL EXAM Go to the dentist once or twice every year for an exam and cleaning. Your dentist will evaluate if you have a need for more frequent visits. DIABETES SCREENING All adults who do not have risk factors for diabetes should be screened starting at age 35 and repeated every 3 years. If you have other risk factors for diabetes, such as a first degree relative with diabetes, overweight or obesity, high blood pressure, prediabetes, or a history of heart disease, you may be tested more often. If you are overweight and have other risk factors, such as high blood pressure and are planning to become , screening is recommended. EYE EXAM Have an eye exam every 2 to 4 years ages 40 to 54 and every 1 to 3 years ages 55 to 64. Your provider may recommend more frequent eye exams if you have vision problems or glaucoma risk. Have an eye exam that includes an examination of your retina (back of your eye) at least every year if you have diabetes. IMMUNIZATIONS Commonly needed vaccines include: Flu shot: get one every year COVID-19 vaccine: ask your provider what is best for you Tetanus-diphtheria and acellular pertussis (Tdap) vaccine: have as one of your tetanus-diphtheria vaccines if you did not receive it as an adolescent Tetanus-diphtheria: have a booster (or Tdap) every 10 years Varicella vaccine: receive 2 doses if you never had chickenpox or the varicella vaccine and were born in 1980 or after Hepatitis B vaccine: receive 2, 3, or 4 doses, depending on your exact circumstances, if you did not receive these as a child or adolescent, until age 59 Shingles (herpes zoster) vaccine: at or after age 50 Ask your provider if you should receive other immunizations, especially if you have certain medical conditions, such as diabetes or are at increased risk for some diseases such as pneumonia. INFECTIOUS DISEASE SCREENING Screening for hepatitis C: all adults ages 18 to 79 should get a one-time test for hepatitis C. Screening for human immunodeficiency virus (HIV): all people ages 15 to 65 should get a one-time test for HIV. Depending on your lifestyle and medical history, you may need to be screened for infections such as syphilis, chlamydia, and other infections. LUNG CANCER SCREENING You should have an annual screening for lung cancer with low-dose computed tomography (LDCT) if: You are age 50 to 80 years AND You have a 20 pack-year smoking history AND You currently smoke or have quit within the past 15 years OSTEOPOROSIS SCREENING If you are age 50 to 64 and have risk factors for osteoporosis, you should discuss screening with your provider. Risk factors can include long-term steroid use, low body weight, smoking, heavy alcohol use, having a fracture after age 50, or a family history of hip fracture or osteoporosis. Osteoporosis PHYSICAL EXAM All adults should visit their provider from time to time, even if they are healthy. The purpose of these visits is to: Screen for diseases Assess risk of future medical problems Encourage a healthy lifestyle Update vaccinations and other preventive care services Maintain a relationship with a provider in case of an illness Your height, weight, and body mass index (BMI) should be checked at every exam. During your exam, your provider may ask you about: Depression and anxiety Diet and exercise Alcohol and tobacco use Safety, such as use of seat belts and smoke detectors Your medicines and risk for interactions PROSTATE CANCER SCREENING If you're 55 through 69 years old, before having the test, talk to your provider about the pros and cons of having a PSA test. Ask about: Whether screening decreases your chance of dying from prostate cancer. Whether there is any harm from prostate cancer screening, such as side effects from testing or overtreatment of cancer when discovered. Whether you have a higher risk of prostate cancer than others. If you are age 55 or younger, screening is not generally recommended. You should talk with your provider about if you have a higher risk for prostate cancer. Risk factors include: Having a family history of prostate cancer (especially a brother or father) Being If you choose to be tested, the PSA blood test is repeated over time (yearly or less often), though the best frequency is not known. Prostate examinations are no longer routinely done on men with no symptoms. Prostate cancer SKIN EXAM Your provider may check your skin for signs of skin cancer, especially if you're at high risk. People at high risk include those who have had skin cancer before, have close relatives with skin cancer, or have a weakened immune system. TESTICULAR EXAM The [place] Preventive Services Task Force (USPSTF) now recommends against performing testicular self-exams. Doing testicular self-exams has been shown to have little to no benefit.
[2024-04-29 15:19] VITALS: BP 117/66; PULSE 63; RESP 12; O2SAT 99; BMI 20.5
== END 2024-04-29 15:53 | disposition home or self-care (01) ==
PROVIDERS: PCP Nurse Practitioner Family; Visit Provider Nurse Practitioner Family
DX: Z00.00 Encounter for general adult medical examination without abnormal findings (principal); Z87.898 Personal history of other specified conditions; Z98.2 Presence of cerebrospinal fluid drainage device; F41.8 Other specified anxiety disorders

== ENCOUNTER → 2024-04-29 15:13 | Outpatient (BNVA) | payer OTHER, SELFPAY | PROVIDERS: PCP Nurse Practitioner Family; Visit Provider Nurse Practitioner Family | DX: Z00.00 Encounter for general adult medical examination without abnormal findings (principal); F41.8 Other specified anxiety disorders; Z87.898 Personal history of other specified conditions; Z98.2 Presence of cerebrospinal fluid drainage device | CPT/HCPCS: 96127 ==